=== PATIENT | male | born 1950 | race Native Hawaiian/Other Pacific Islander ===

== ENCOUNTER 2020-10-27 12:13 | Outpatient (CLI) | payer OTHER | END 2020-10-27 19:03 | disposition home or self-care (01) | LOC: LAB 12:13 | PROVIDERS: ATTEND Nurse Practitioner Family | DX: U07.1 COVID-19 (principal); J06.9 Acute upper respiratory infection, unspecified; R05 Cough; R52 Pain, unspecified; Z11.59 Encounter for screening for other viral diseases | CPT/HCPCS: 87635; G2023; U0003 ==

== ENCOUNTER 2020-11-07 13:15 | Outpatient (CLI) | payer OTHER | END 2020-11-07 23:24 | disposition home or self-care (01) | LOC: LAB 13:15 | PROVIDERS: ATTEND Nurse Practitioner Family | DX: Z11.59 Encounter for screening for other viral diseases (principal) | CPT/HCPCS: 87635; G2023; U0003 ==